=== PATIENT | male | born 1995 | race Caucasian/White ===

== ENCOUNTER 2022-11-22 12:34 | Emergency (ER) | payer OTHER ==
[2022-11-22 12:39] VITALS: BP 137/87; PULSE 73; RESP 17; TEMP 98.3; BMI 35.3
[2022-11-22] MEDS ORDERED: MAG HYDROX/AL HYDROX/SIMETH -MYLANTA- ORAL SUSPENSION PO ONE (13:13)
[2022-11-22] MEDS ORDERED: FAMOTIDINE 20 MG TABLET PO ONE (13:13)
[2022-11-22] MEDS ORDERED: FAMOTIDINE 20 MG TABLET ONE (13:55)
[2022-11-22] MEDS ORDERED: MAG HYDROX/AL HYDROX/SIMETH 30 ML UNIT-DOSE CUP ONE (13:55)
[2022-11-22 14:02] LABS: EOS % 4.4 % (0-4.5); HEMATOCRIT 42.9 % (35.4-49); HEMOGLOBIN 15.7 GM/dL (11.7-16.9); LYMPH % 20.9 % (8-40); MCH 31.4 pg (25.7-33.7); MCHC 36.6 g/dl (32.0-35.9); MEAN CELL VOLUME 85.8 fl (80-96); MEAN PLT VOLUME 9.3 fl (7.5-11.1); MONO % 10.3 % (3.8-10.2); NEUT % 63.4 % (42.8-82.8); PLATELET COUNT 214 10^3/uL (134-434); RBC 5.01 M/mm3 (4.00-5.60); RDW 13.8 % (11.9-15.9); WHITE BLOOD COUNT 7.2 K/mm3 (4.0-10.0)
[2022-11-22 14:35] LABS: POTASSIUM 4.2 mmol/L (3.5-5.1)
[2022-11-22 14:37] LABS: CALCIUM 9.3 mg/dL (8.5-10.1)
[2022-11-22 14:38] LABS: ALBUMIN 4.3 g/dl (3.4-5.0); BLOOD UREA NITROGEN 11.2 mg/dL (7-18)
[2022-11-22 14:40] LABS: BILIRUBIN,DIRECT 0.2 mg/dL (0.0-0.2); CREATININE 0.8 mg/dL (0.55-1.3)
[2022-11-22 14:42] LABS: BILIRUBIN,TOTAL 0.7 mg/dL (0.2-1); TOT PROT 7.6 g/dl (6.4-8.2)
== END 2022-11-22 16:26 | disposition home or self-care (01) ==
LOC: JER 12:34
DX: R10.13 Epigastric pain (principal); R11.2 Nausea with vomiting, unspecified; R19.7 Diarrhea, unspecified
CPT/HCPCS: 36415; 76705-TC; 80048; 80076; 83690; 85025; 93005; 93010; 99285-25